=== PATIENT | male | born 1945 | race Caucasian/White ===

== ENCOUNTER → 2016-10-05 | Outpatient (CLI) | payer MEDICARE ==
--- NOTE | 2016-10-07 18:06 | P.CONS ---
History of Present Illness - Reason for Consult Consult date: 10/05/16 - History of Present Illness This is 71 years old male, with a chronic history of severe low back pain, patient was seen in the [facility] pain clinic more than 3 years ago, and we did interventional pain management, epidural steroid injection , patient had good pain relief, over the last few months he started complaining of increased intensity over the low back pain,, pain is constant and increases with any activity, patient denies any change in the bowel movement or urination and he has no fever or night sweats, intensity of the pain is interfering with his quality of life , and intensity of the pain fluctuates between a 6/10 increased to 9/10 with any activity, currently he is on pain medication Waldo 10 /325 every 8 hours, he is getting some relief from the pain medication but it is not enough to make him able to function and do activities of daily livings, he denies any side effect of the medication, Past Medical History Past Medical History: Diabetes Mellitus, Hypertension, Thyroid Disorder Additional Past Medical History / Comment(s): hx:kidney stones, pain lt hip leg , ankle, chronic neck pain and chronic left hip pain History of Any Multi-Drug Resistant Organisms: MRSA Year Discovered:: 2006 MDRO Source:: unknown Past Surgical History: Back Surgery, Cholecystectomy Additional Past Surgical History / Comment(s): cyst removal from chest Past Anesthesia/Blood Transfusion Reactions: No Reported Reaction Past Psychological History: Depression Smoking Status: Former smoker Past Alcohol Use History: Rare Additional Past Alcohol Use History / Comment(s): smoked 10 years 3ppd quit age 27 Past Drug Use History: None Reported - Past Family History Mother Family Medical History: No Reported History Medications and Allergies Home Medications Medication Instructions Recorded Confirmed Type Aspirin 325 mg PO DAILY 03/25/14 10/05/16 History Calcium Carbonate [Tums] 500 mg PO DAILY PRN 03/25/14 10/05/16 History Gabapentin [Neurontin] 800 mg PO TID 03/25/14 10/05/16 History Levothyroxine Sodium [Synthroid] 75 mcg PO DAILY 03/25/14 10/05/16 History [place] Oil/[place]-3 Fatty Acids 2 each PO DAILY 03/25/14 10/05/16 History [Fish Oil 500 mg Softgel] Citalopram Hydrobromide 40 mg PO DAILY 10/02/16 10/05/16 History Exenatide Microspheres [Bydureon] 2 mg SQ STOLL 10/02/16 10/05/16 History HYDROcodone/APAP 10-325MG [Waldo 1 tab PO Q8HR PRN 10/02/16 10/05/16 History 10-325] Lisinopril [Zestril] 5 mg PO DAILY 10/02/16 10/05/16 History buPROPion HCL [buPROPion HCL SR] 150 mg PO DAILY 10/02/16 10/05/16 History sitaGLIPtin PHOS/metFORMIN HCL 1 each PO DAILY 10/02/16 10/05/16 History [Janumet 50-1,000 mg Tablet] Allergies Allergy/AdvReac Type Severity Reaction Status Date / Time No Known Allergies Allergy Verified 10/05/16 13:21 Physical Exam ( Social history : not smoker , NO ETOH , NO Illegal drugs use . Review of Systems : 1- Constitutional : no chills , no fever , no night sweats , 2- Ears : no ear discharge , no change in hearing 3-Nose, Mouth ,Throat ; no bleeding gums, no sore throat , no epistaxis , 4-Cardiovascular : Denies chest pain, , no orthopnea , no palpitation 5-Respiratory : Denies cough , no dyspnea , no hemoptysis 6-Gastrointestinal :, no change in bowel habits , no coffee- ground emesis . 7-Genitourinary : No hematuria , no discharge , no incontinence, 8-Musculoskeletal : gait dysfunction , report low back pain , 9- Neurological : no ataxia , no tremor , no sezure , 10-Psychatric , no suicidal ideation no hallucination 11- Endocrine : no cold intolerence , no polyuria , no polydypsia , 12-Hematologic : no easy bleeding , no easy brusing , 13-Allergic / immunology : no angioedema , no wheezing ,no allergic rhinitis 14-Integumentary : no brttle nails , no change hair / nails , no foot/leg ulcers . Physical Examinations : 1-Constitutional : Cooperative , not in acute distress . 2-HEENT : nech ; supple , no Lymphadenopathy , no Thyromegaly , eyes , no icterus, no photophobia . ENT : , normal oropharynx , no Thrush 3- Respiratory : Chest clear to auscultations Bilaterally , no wheezing . 4- Cardiovascular : regular rate and rhythem , S1 , S2 , no S3 , no S4. 5- Gastrointestinal: abdomen soft no tenderness , no organomegally . 6- Genitourinary : Defferred . 7-Integumentary : No cellulitis , no ulcers , normal skin turgor , no cyanotic . 8- neurologic : Cranial nerve II to XII intact , no focal neurological deffecit 9-psychatric : alert , oriented X 3 , appropriate affect , intact judgment and insight . 10-Lymphatic : no Lymphadenopathy. 11- musculoskeltal: Antalgic. Gait exams of the Lumber spine = moter stegnth lower extremities , thigh and legs 5/5 Right side , 5/5 Left side deep tendon reflexes : normal Knee Jerk , normal ankle Jerk positive lumber facet Loading Test Range of motion of the lumbar spine Flexion 30 degrees, extension 10 degrees strait leg raising test , positive at 30 degree Fabere test positive RT and positive LT . Assessment and Plan Plan: Assessment and plan = - Chronic low back pain secondary to lumbar degenerative disc disease , lumbar spondylosis. - diagnoses, prognosis, and treatment options including but not limited to physical therapy, surgical interventions, interventional therapies and medication management including narcotics and adjuvant medication were discussed with the patient and all questions answered to the patient's satisfaction. -medication management= patient should continue to get his pain medication Waldo 10/325 every 8 hours from his primary care, and he should continue his Neurontin 800 mg 3 times a day -procedure= patient could benefit from lumbar epidural steroid injection under fluoroscopy guidance, and if he continued to have low back pain after the epidural steroid injection , then we will consider doing diagnostic medial branch block and possible radiofrequency Time with Patient: Greater than 30
== END | disposition home or self-care (01) ==
CPT/HCPCS: 99201

== ENCOUNTER 2016-11-23 09:52 | Day surgery (SDC) | payer MEDICARE ==
[2016-11-21 14:28] VITALS: BMI 37.1
[~2016-11-23 09:52] MED LIST: LACTATED RINGERS 1,000 ML IV SCH
[2016-11-23 10:36] VITALS: RESP 16; TEMP 97.1
[2016-11-23 10:40] LABS: Glucose,Whole Blood 169 mg/dL (75-99)
[2016-11-23] MEDS ORDERED: LIDOCAINE 1% 20 ML VIAL (10MG/ML) FOR IV START INTRADERMA ONE (10:42)
[2016-11-23] MEDS ORDERED: MIDAZOLAM 2 MG/2 ML VIAL ONE (11:12)
[2016-11-23] MEDS ORDERED: fentaNYL (PF) 50 MCG/ML 2 ML AMP ONE (11:12)
--- NOTE | 2016-11-23 11:31 | P.PCN ---
Date of Procedure: 11/23/16 Surgeon: Charlie Brewster Pathology: none sent Condition: stable Disposition: PACU Description of Procedure: PREOPERATIVE DIAGNOSIS: Lumbar post laminectomy syndrome. POSTOPERATIVE DIAGNOSIS: Lumbar post laminectomy syndrome. PROCEDURE: 1. Caudal epidural steroid injection under fluoroscopic guidance. 2. Caudal epidurogram. ANESTHESIA: Local with 1% lidocaine; IV sedation EBL: None. PROCEDURE INDICATION: This is a patient with postlaminectomy syndrome with uncontrolled low back and leg pain. No use of blood thinners. Patient was initially scheduled for lumbar epidural steroid injection, but with his history of previous laminectomy, I decided that a caudal HUY would be a better option due to epidural space obliteration from previous lumbar surgery. Patient was then scheduled for caudal HUY. PROCEDURE DESCRIPTION: The patient was seen and identified in the preoperative area. Risks, benefits, complications, and alternatives were discussed with the patient including but not limited to bleeding, infection, nerve damage, incomplete pain relief, and allergic reactions to medications. The patient agreed to proceed with the procedure and signed the informed consent. IV was started, and vital signs were stable. Patient was taken to the OR and time out was completed. The patient was placed in the prone position on procedure table and a pillow was placed under the abdomen to reduce lumbar lordosis. The lumbosacral area was prepped and draped in the usual sterile fashion. Vital signs were closely monitored during the procedure. Using lateral fluoroscopy the anterior-posterior plates of the sacrum were identified and the skin and deeper tissues corresponding into sacrococcygeal ligament were anesthetized using approximately 3 mL of 1% lidocaine. Then under fluoroscopy, a 3-1/2-inch 20-gauge Tuohy epidural needle was guided through the sacrococcygeal ligament, and into the epidural space. After negative aspiration , 2 mL of omnipaque-300 contrast dye was injected with excellent epidurogram. Again after negative aspiration for CSF, blood, and with no paresthesias, a solution containing Kenalog 40mg, 2ml of 1% preservative free lidocaine with 8 ml of preservative free normal saline (total of 11 ml) solution was injected with washout of epidurogram. Needle was withdrawn intact. Skin was cleansed, and bandage was applied. COMPLICATIONS: None. COMMENTS: DISPOSITION / PLANS: The patient was placed in a supine position and transferred to the recovery area in a stable condition for observation and was discharged from the recovery room after meeting discharge criteria. Home discharge instructions given to the patient by the staff. The patient was reexamined prior to discharge. The patient will schedule a follow up procedure ( caudal HUY #2) in 4-6 weeks.
[2016-11-23] MEDS ORDERED: IV FLUID CONTINUATION 1,000 ML IV ONE (11:33)
[2016-11-23 11:40] LABS: Glucose,Whole Blood 159 mg/dL (75-99)
[2016-11-23 11:52] VITALS: BP 101/60
--- NOTE | 2016-11-23 12:30 | FL ---
Fluoroscopy HISTORY: Pain 13 seconds fluoroscopy time supplied to the referring clinician. 2 intraoperative C-arm images docum ent the procedure. See dictated report from anesthesia.
[2016-11-23 13:04] VITALS: PULSE 78
== END 2016-11-23 13:24 | disposition home or self-care (01) ==
LOC: ORPAIN 09:52
PROVIDERS: ATTEND Anesthesiology
DX: M54.5 Low back pain (principal); G89.29 Other chronic pain; M96.1 Postlaminectomy syndrome, not elsewhere classified; M79.659 Pain in unspecified thigh; E11.9 Type 2 diabetes mellitus without complications; I10 Essential (primary) hypertension; F32.9 Major depressive disorder, single episode, unspecified; Z79.891 Long term (current) use of opiate analgesic; Z79.84 Long term (current) use of oral hypoglycemic drugs; Z79.899 Other long term (current) drug therapy
CPT/HCPCS: 62323; J2250; J3010

== ENCOUNTER → 2017-01-23 | Outpatient (CLI) | payer MEDICARE ==
[2017-01-23 13:10] VITALS: BP 145/78; PULSE 83; RESP 16; TEMP 97.5
--- NOTE | 2017-01-23 13:33 | P.PN ---
Progress Note - Text Patient returns for followup for chronic back pain with radiation to legs. Patient recently underwent caudal HUY x 1, which made his pain worse for several days and did not give him much relief. Patient continues on [place] medications for pain from PCP with good relief. Patient denies adverse drug effects from medications. Today, pt denies new-onset weakness, bowel/bladder incontinence, or any other signs or symptoms of cauda equina syndrome. There are no signs of acute intoxication, and no indications of medication diversion or overuse. Patient had MRI of L-spine done at [facility] but we do not have a copy of this result. In addition to above, 13-point review of systems is also negative for chest pain , shortness of breath, changes in vision, changes in hearing, new onset weakness , abdominal pain, diarrhea, extreme fatigue, malaise, fever, skin changes, homicidal or suicidal ideation, or bowel or bladder incontinence. Vital Signs: Reviewed in EMR Gen: WDWN, AAOx3, NAD HEENT: NCAT, EOMI, hearing grossly normal Pulm: resp unlabored Abd: soft, NT, ND Neck: supple, trachea midline ROM in flexion lumbar spine: reduced ROM in extension lumbar spine: reduced Lumbar paravertebral tenderness: + Facet loading: + bilateral SI joint tenderness: + LLE Earle's test: + LLE > RLE Straight leg raise: neg Neuro: CN II-XII grossly intact, muscle strength lower extremities PRESERVED Imaging: no lumbar spine MRI for review Assessment: 1. lumbar PLPS 2. lumbar spondylosis without myelopathy 3. chronic pain syndrome Plan: 1. Explanation: Opioid and psychological risk scores were reviewed. Diagnoses , prognoses, and multiple treatment options including but not limited to physical therapy, interventional therapies, adjuvant medical therapies, narcotic medication therapies, and surgery were discussed with the patient and all questions were answered to the patient's satisfaction. 2. Opioid agreement: no opioids prescribed today 3. Counseling: The patient was counseled extensively on SMOKING CESSATION, BODY MASS INDEX, EXERCISE. Specifically, the patient was instructed regarding the importance of smoking cessation, obesity, and exercise in the context of both chronic pain and overall health. 4. Procedures: bilateral lumbar MBB 4-6 weeks (although still awaiting MRI result) 5. Consultations: None 6. Investigations: None 7. Medications: none 8. Disposition: f/u for procedure as scheduled PQRS measures: 1-Patient's medications are documented in the chart. 2-Tobacco use is negative 3-Patient has not had a pneumococcal vaccine. 4-Advanced care planning discussed, patient unable to give. 5-Opioid contract NOT signed with the patient. 6-Pain positive, follow-up visit or procedure scheduled 7-Patient's blood pressure measured and documented, and patient will follow up with the primary care due to hypertension. 8-Patient's weight was measured, and body mass index ABOVE the normal limits, and counseling was done. Patient instructed to follow up with PCP. 9-Patient WAS NOT identified as an unhealthy alcohol user.
== END ==
LOC: PNWHC3 12:45
PROVIDERS: ATTEND Anesthesiology
DX: M47.816 Spondylosis without myelopathy or radiculopathy, lumbar region (principal); G97.1 Other reaction to spinal and lumbar puncture; G89.4 Chronic pain syndrome
CPT/HCPCS: 99211

== ENCOUNTER 2017-06-03 16:32 | Emergency (ER) | payer MEDICARE ==
[2017-06-03 16:39] VITALS: RESP 18
[2017-06-03 17:16] LABS: Appearance,Urine Turbid (Clear); Bilirubin,Urine Negative (Negative); Glucose,Urine (UA) 4+ (Negative); Ketones,Urine Negative (Negative); Leukocyte Esterase,Urine Large (Negative); Nitrite,Urine Negative (Negative); PH, Urine 5.5 (5.0-8.0); Particle Count 6161; Protein,Urine 1+ (Negative); Specific Gravity,Urine 1.016 (1.001-1.035); Squamous Epithelial Cell,Urine 3 /hpf (0-4); UA Billing (MACRO vs. MICRO) MICRO; Urobilinogen,Urine <2.0 mg/dL (<2.0); WBC,Urine >182 /hpf (0-5)
--- NOTE | 2017-06-03 17:25 | ED ---
General Adult HPI - General Chief complaint: Urogenital Stated complaint: Male Time Seen by Provider: 06/03/17 16:59 Source: patient, RN notes reviewed Mode of arrival: ambulatory Limitations: no limitations - History of Present Illness Initial comments: 72-year-old male presents emergency Department with multiple complaints. Patient complains of dysuria which started approximately one month ago. Patient has had on and off issues the last 6-7 months and has seen his urologist Dr. Etienne in which she states that they have not been able to figure out what causes his issues. He did state that sometimes there is an infection. Patient denies any abdominal pain including nausea, vomiting diarrhea constipation. Patient states that he had a fall 1 week ago in which he fell onto his right wrist and had x-rays at [facility]. Patient states today's with later he fell onto his right rib region and has complained of rib pain. He can denies any abdominal pain. He states he does have pain with inspiration and has some shortness breath secondary to pain denies any resting shortness of breath. Denies any head injury no LOC. - Related Data Home Medications Medication Instructions Recorded Confirmed Aspirin 325 mg PO DAILY 03/25/14 06/03/17 Gabapentin [Neurontin] 800 mg PO TID 03/25/14 06/03/17 Levothyroxine Sodium [Synthroid] 75 mcg PO DAILY 03/25/14 06/03/17 [place] Oil/[place]-3 Fatty Acids 2 cap PO DAILY 03/25/14 06/03/17 [Fish Oil 500 mg Softgel] Citalopram Hydrobromide 40 mg PO DAILY 10/02/16 06/03/17 [Citalopram HBr] buPROPion HCL [buPROPion HCL SR] 150 mg PO DAILY 10/02/16 06/03/17 HYDROmorphone HCL [Dilaudid] 8 mg PO Q6H PRN 06/03/17 06/03/17 Metoprolol Tartrate [Lopressor] 100 mg PO BID 06/03/17 06/03/17 Previous Rx's Medication Instructions Recorded Levofloxacin [Levaquin] 500 mg PO DAILY #10 tab 06/03/17 Allergies Allergy/AdvReac Type Severity Reaction Status Date / Time No Known Allergies Allergy Verified 06/03/17 17:17 Review of Systems ROS Statement: Those systems with pertinent positive or pertinent negative responses have been documented in the HPI. ROS Other: All systems not noted in ROS Statement are negative. Past Medical History Past Medical History: Diabetes Mellitus, Fibromyalgia, Hypertension, Skin Disorder, Thyroid Disorder Additional Past Medical History / Comment(s): hx:kidney stones, chronic pain sierra legs, psoriasis History of Any Multi-Drug Resistant Organisms: MRSA Date of last positivie culture/infection: 2006 MDRO Source:: unknown Past Surgical History: Back Surgery, Cholecystectomy Additional Past Surgical History / Comment(s): cyst removal from chest, lithotripsy Past Anesthesia/Blood Transfusion Reactions: No Reported Reaction Past Psychological History: Anxiety, Depression Smoking Status: Former smoker Past Alcohol Use History: Rare Past Drug Use History: None Reported - Past Family History Mother Family Medical History: No Reported History General Exam Limitations: no limitations General appearance: alert, in no apparent distress Head exam: Present: atraumatic, normocephalic, normal inspection Respiratory exam: Present: normal lung sounds bilaterally, chest wall tenderness (Right anterolateral rib tenderness). Absent: respiratory distress, wheezes, rales, rhonchi, stridor Cardiovascular Exam: Present: regular rate, normal rhythm, normal heart sounds. Absent: systolic murmur, diastolic murmur, rubs, gallop, clicks GI/Abdominal exam: Present: soft, normal bowel sounds. Absent: distended, tenderness, guarding, rebound, rigid exam: Absent: normal inspection (Mild erythema at the urethral), testicular tenderness, urethral discharge, scrotal swelling Extremities exam: Present: normal inspection, full ROM, normal capillary refill. Absent: tenderness, pedal edema, joint swelling, calf tenderness Back exam: Present: full ROM. Absent: tenderness Neurological exam: Present: alert, oriented X3, CN II-XII intact, reflexes normal. Absent: motor sensory deficit Skin exam: Present: warm, dry, intact, normal color. Absent: rash Course Vital Signs 06/03/17 16:35 Temperature 97 F L Pulse Rate 105 H Respiratory 18 Rate Blood Pressure 176/79 O2 Sat by Pulse 96 Oximetry Medical Decision Making - Medical Decision Making 72-year-old male presented for dysuria, right rib pain. Patient does have urinary tract infection at this time. Patient was treated with antibiotics and follow-up with urologist. Patient also has nondisplaced rib fracture. Patient will continue take his home pain meds. Return parameters were discussed. - Lab Data Lab Results 06/03/17 06/03/17 Range/Units 16:55 17:46 POC Glucose (mg/dL) 241 H (75-99) mg/dL POC Glu Clay Modeler ID Alma Swenson Urine Color Yellow Urine Appearance Turbid (Clear) Urine pH 5.5 (5.0-8.0) Ur Specific [place] 1.016 (1.001-1.035) Urine Protein 1+ H (Negative) Urine Glucose (UA) 4+ H (Negative) Urine Ketones Negative (Negative) Urine Blood Small H (Negative) Urine Nitrite Negative (Negative) Urine Bilirubin Negative (Negative) Urine Urobilinogen <2.0 (<2.0) mg/dL Ur Leukocyte Esterase Large H (Negative) Urine WBC >182 H (0-5) /hpf Urine WBC Clumps Many H (None) /hpf Ur Squamous Epith Cells 3 (0-4) /hpf Disposition Clinical Impression: Rib fracture, Urinary tract infection Disposition: HOME SELF-CARE Condition: Stable Instructions: Urinary Tract Infection in Men (ED) Additional Instructions: Please return to the Emergency Department if symptoms worsen or any other concerns. Prescriptions: Levofloxacin [Levaquin] 500 mg PO DAILY #10 tab Referrals: Benson Amor MD [Primary Care Provider] - 1-2 days Time of Disposition: 17:58
[2017-06-03] MEDS ORDERED: PHENAZOPYRIDINE 200 MG TAB PO STA (17:27)
[2017-06-03] MEDS ORDERED: LEVOFLOXACIN 500 MG TAB PO STA (17:35)
[2017-06-03] MEDS ORDERED: HYDROcodone/APAP 10-325MG 1 EACH TAB PO ONE (17:47)
[2017-06-03 17:49] LABS: Glucose,Whole Blood 241 mg/dL (75-99)
--- NOTE | 2017-06-03 17:55 | XR ---
EXAMINATION TYPE: PA chest and right rib series DATE OF EXAM: 06/03/2017 COMPARISON: None HISTORY: 72-year-old male with right-sided pain after fall one week ago FINDINGS: Heart is normal size. Mild elongation of the thoracic aorta. Mild diffuse interstitial prominence. No consolidation, pneumothorax, or pleural effusion. Possible nondisplaced fracture of the anterior right eighth rib near the costochondral junction seen only on one view. Cholecystectomy clips. IMPRESSION: 1. No acute cardiopulmonary process. 2. Possible nondisplaced fracture of the anterior right eighth rib near the costochondral junction. C orrelate for any focal pain here.
[2017-06-03 18:09] VITALS: BP 160/87; PULSE 95; TEMP 98
== END 2017-06-03 18:08 | disposition home or self-care (01) ==
LOC: EC 16:32
DX: S22.31XA Fracture of one rib, right side, initial encounter for closed fracture (principal); N39.0 Urinary tract infection, site not specified; I10 Essential (primary) hypertension; E07.9 Disorder of thyroid, unspecified; F32.9 Major depressive disorder, single episode, unspecified; F41.9 Anxiety disorder, unspecified; Z86.14 Personal history of Methicillin resistant Staphylococcus aureus infection; Z87.891 Personal history of nicotine dependence; Z79.891 Long term (current) use of opiate analgesic; Z79.82 Long term (current) use of aspirin; Z79.899 Other long term (current) drug therapy; W19.XXXA Unspecified fall, initial encounter
CPT/HCPCS: 36415; 81001; 87086; 99283

== ENCOUNTER → 2019-10-01 | Outpatient (CLI) | payer MEDICARE, OTHER ==
--- NOTE | 2019-10-01 15:48 | US ---
EXAMINATION TYPE: US scrotum with doppler. Grayscale and color Doppler Duplex imaging performed of karyn young scrotum. DATE OF EXAM: 10/01/2019 COMPARISON: NONE CLINICAL HISTORY: N50.89 testicular mass. No swelling or redness. Patient states having a recent jennifer al infection. Patient states feeling lump. EXAM MEASUREMENTS: TESTICLES: Right Testicle: 4.2 x 2.8 x 2.7 cm Left Testicle: 3.4 x 3.2 x 2.6 cm EPIDIDYMIS HEAD: Right Epididymis: 1.3 x 0.9 x 0.9 cm Left Epididymis: 1.2 x 0.9 x 0.6 cm Doppler performed to assess for testicular vascularity; good bilateral color flow and waveforms are s een. There is no evidence of testicular torsion. Presence of hydroceles: Bilateral Presence of varicoceles: no Bilateral cystic appearing lesions seen in epididymal head. Largest measured; Right- 0.6 x 0.7 x 0.6 cm Left- 0.8 x 0.8 cm. IMPRESSION: 1. Bilateral epididymal cyst. 2. No ultrasound evidence of torsion. 3. No discrete testicular masses.
== END | disposition home or self-care (01) ==
LOC: RADUSWWP 14:49
PROVIDERS: ATTEND Physician Assistant
DX: N50.3 Cyst of epididymis (principal)
CPT/HCPCS: 76870; 93975

== ENCOUNTER 2019-10-27 18:22 | Emergency (ER) | payer MEDICARE, OTHER ==
[2019-10-27 18:29] VITALS: RESP 18; TEMP 97.6
--- NOTE | 2019-10-27 19:01 | ED ---
Abdominal Pain HPI - General Chief Complaint: Abdominal Pain Stated Complaint: hematuria Time Seen by Provider: 10/27/19 18:30 Source: patient, RN notes reviewed Mode of arrival: ambulatory - History of Present Illness Initial Comments: This is a 74-year-old male with a history of kidney stones who complains of dysuria with gross hematuria this morning. He had 2 episodes of gross hematuria. He states he was diagnosed with a urinary tract infection recently was antibiotic for 14 days it did not resolve he was switched over to doxycycline he is now on day 5 states that the dysuria continues though is somewhat better he states also gross hematuria is clearing up somewhat later in the day he denies any fevers chills nausea vomiting sweats cough shortness of breath no worsening of the discomfort with or without movement. He states he did have a large kidney stone left kidney in the past was removed. MD Complaint: flank pain - Related Data Home Medications Medication Instructions Recorded Confirmed Aspirin 325 mg PO DAILY 03/25/14 06/03/17 Gabapentin [Neurontin] 800 mg PO TID 03/25/14 06/03/17 Levothyroxine Sodium [Synthroid] 75 mcg PO DAILY 03/25/14 06/03/17 [place]-3 Fatty Acids 2 cap PO DAILY 03/25/14 06/03/17 [Fish Oil 500 mg Softgel] Citalopram Hydrobromide 40 mg PO DAILY 10/02/16 06/03/17 [Citalopram HBr] buPROPion HCL [buPROPion HCL SR] 150 mg PO DAILY 10/02/16 06/03/17 HYDROmorphone HCL [Dilaudid] 8 mg PO Q6H PRN 06/03/17 06/03/17 Metoprolol Tartrate [Lopressor] 100 mg PO BID 06/03/17 06/03/17 Previous Rx's Medication Instructions Recorded Levofloxacin [Levaquin] 500 mg PO DAILY #10 tab 06/03/17 Cephalexin [Keflex] 500 mg PO Q6HR #40 cap 10/27/19 Phenazopyridine HCl [Pyridium] 100 mg PO TID #21 tab 10/27/19 Allergies Allergy/AdvReac Type Severity Reaction Status Date / Time No Known Allergies Allergy Verified 06/03/17 17:17 Review of Systems ROS Statement: Those systems with pertinent positive or pertinent negative responses have been documented in the HPI. ROS Other: All systems not noted in ROS Statement are negative. Past Medical History Past Medical History: Diabetes Mellitus, Fibromyalgia, Hypertension, Skin Disorder, Thyroid Disorder Additional Past Medical History / Comment(s): hx:kidney stones, chronic pain [place] legs, psoriasis History of Any Multi-Drug Resistant Organisms: MRSA Date of last positivie culture/infection: 2006 MDRO Source:: unknown Past Surgical History: Back Surgery, Cholecystectomy Additional Past Surgical History / Comment(s): cyst removal from chest, lithotripsy Past Anesthesia/Blood Transfusion Reactions: No Reported Reaction Past Psychological History: Anxiety, Depression Smoking Status: Former smoker Past Alcohol Use History: Rare Past Drug Use History: None Reported - Past Family History Mother Family Medical History: No Reported History General Exam - General Exam Comments Initial Comments: This is a well-developed well-nourished awake alert oriented 3 male General appearance: alert, in no apparent distress Head exam: Present: atraumatic, normocephalic, normal inspection Eye exam: Present: normal appearance, PERRL, EOMI. Absent: scleral icterus, conjunctival injection, periorbital swelling ENT exam: Present: normal exam, mucous membranes moist Neck exam: Present: normal inspection. Absent: tenderness, meningismus, lymphadenopathy Respiratory exam: Present: normal lung sounds bilaterally. Absent: respiratory distress, wheezes, rales, rhonchi, stridor Cardiovascular Exam: Present: regular rate, normal rhythm, normal heart sounds. Absent: systolic murmur, diastolic murmur, rubs, gallop, clicks GI/Abdominal exam: Present: soft, normal bowel sounds. Absent: distended, tenderness, guarding, rebound, rigid Extremities exam: Present: normal inspection, full ROM, normal capillary refill. Absent: tenderness, pedal edema, joint swelling, calf tenderness Back exam: Present: normal inspection Neurological exam: Present: alert, oriented X3, CN II-XII intact Psychiatric exam: Present: normal affect, normal mood Skin exam: Present: warm, dry, intact, normal color. Absent: rash Course Vital Signs 10/27/19 18:26 Temperature 97.6 F Pulse Rate 77 Respiratory 18 Rate Blood Pressure 172/75 O2 Sat by Pulse 96 Oximetry Medical Decision Making - Medical Decision Making I did discuss findings with the patient the presentation is consistent with UTI/cystitis. Patient will be placed on appropriate antibiotics he is encourage increase his oral fluids follow-up with his doctor return when necessary - Lab Data Result diagrams: 10/27/19 19:14 10/27/19 19:14 Lab Results 10/27/19 10/27/19 10/27/19 Range/Units 19:14 19:14 19:14 WBC 12.3 H (3.8-10.6) k/uL RBC 4.42 (4.30-5.90) m/uL Hgb 12.7 L (13.0-17.5) gm/dL Hct 40.1 (39.0-53.0) % MCV 90.7 (80.0-100.0) fL MCH 28.8 (25.0-35.0) pg MCHC 31.7 (31.0-37.0) g/dL RDW 14.6 (11.5-15.5) % Plt Count 264 (150-450) k/uL Neutrophils % 66 % Lymphocytes % 22 % Monocytes % 5 % Eosinophils % 5 % Basophils % 1 % Neutrophils # 8.1 H (1.3-7.7) k/uL Lymphocytes # 2.7 (1.0-4.8) k/uL Monocytes # 0.6 (0-1.0) k/uL Eosinophils # 0.7 (0-0.7) k/uL Basophils # 0.1 (0-0.2) k/uL Sodium 140 (137-145) mmol/L Potassium 4.4 (3.5-5.1) mmol/L Chloride 105 (98-107) mmol/L Carbon Dioxide 19 L (22-30) mmol/L Anion Gap 16 mmol/L BUN 42 H (9-20) mg/dL Creatinine 2.24 H (0.66-1.25) mg/dL Est GFR (CKD-EPI)AfAm 33 (>60 ml/min/1.73 sqM) Est GFR (CKD-EPI)NonAf 28 (>60 ml/min/1.73 sqM) Glucose 186 H (74-99) mg/dL Calcium 9.8 (8.4-10.2) mg/dL Magnesium 2.1 (1.6-2.3) mg/dL Total Bilirubin 0.3 (0.2-1.3) mg/dL AST 21 (17-59) U/L ALT 12 (4-49) U/L Alkaline Phosphatase 172 H (38-126) U/L Creatine Kinase 56 (55-170) U/L Total Protein 7.5 (6.3-8.2) g/dL Albumin 4.2 (3.5-5.0) g/dL Amylase 68 (30-110) U/L Lipase 191 (23-300) U/L Urine Color Yellow Urine Appearance Cloudy (Clear) Urine pH 5.0 (5.0-8.0) Ur Specific [place] 1.013 (1.001-1.035) Urine Protein Trace H (Negative) Urine Glucose (UA) Trace H (Negative) Urine Ketones Negative (Negative) Urine Blood Moderate H (Negative) Urine Nitrite Negative (Negative) Urine Bilirubin Negative (Negative) Urine Urobilinogen <2.0 (<2.0) mg/dL Ur Leukocyte Esterase Large H (Negative) Urine RBC >182 H (0-5) /hpf Urine WBC 170 H (0-5) /hpf Ur Squamous Epith Cells 1 (0-4) /hpf Urine Bacteria Rare H (None) /hpf Urine Mucus Rare H (None) /hpf - Radiology Data Radiology results: report reviewed (I did review the imaging and report chronic changes with atrophy left kidney no evidence of acute obstruction. Please see the complete report.), image reviewed Disposition Clinical Impression: Urinary tract infection, Cystitis, Renal insufficiency syndrome Disposition: HOME SELF-CARE Condition: Good Instructions (If sedation given, give patient instructions): Urinary Tract Infection in Men (ED), Chronic Kidney Disease (ED) Additional Instructions: Occasion prescription sent to your preferred pharmacy Prescriptions: Cephalexin [Keflex] 500 mg PO Q6HR #40 cap Phenazopyridine HCl [Pyridium] 100 mg PO TID #21 tab Is patient prescribed a controlled substance at d/c from ED?: No Referrals: Benson Amor MD [Primary Care Provider] - 1-2 days
[2019-10-27 19:27] LABS: Basophils # (A) 0.1 k/uL (0-0.2); Basophils % (A) 1 %; Eosinophils # (A) 0.7 k/uL (0-0.7); Eosinophils % (A) 5 %; HCT 40.1 % (39.0-53.0); HGB 12.7 gm/dL (13.0-17.5); Lymphocytes # (A) 2.7 k/uL (1.0-4.8); Lymphocytes % (A) 22 %; MCH 28.8 pg (25.0-35.0); MCHC 31.7 g/dL (31.0-37.0); MCV 90.7 fL (80.0-100.0); Mean Platelet Volume 7.6; Monocytes # (A) 0.6 k/uL (0-1.0); Monocytes % (A) 5 %; Neutrophils # (A) 8.1 k/uL (1.3-7.7); Neutrophils % (A) 66 %; Platelet Count 264 k/uL (150-450); RBC 4.42 m/uL (4.30-5.90); RDW 14.6 % (11.5-15.5); WBC 12.3 k/uL (3.8-10.6)
[2019-10-27 19:29] LABS: Appearance,Urine Cloudy (Clear); Bacteria,Urine Rare /hpf; Bilirubin,Urine Negative (Negative); Blood,Urine Moderate (Negative); Color,Urine Yellow; Glucose,Urine (UA) Trace (Negative); Ketones,Urine Negative (Negative); Leukocyte Esterase,Urine Large (Negative); Mucus,Urine Rare /hpf; Nitrite,Urine Negative (Negative); Protein,Urine Trace (Negative); RBC,Urine >182 /hpf (0-5); Specific Gravity,Urine 1.013 (1.001-1.035); Squamous Epithelial Cell,Urine 1 /hpf (0-4); Urobilinogen,Urine <2.0 mg/dL (<2.0); WBC,Urine 170 /hpf (0-5)
[2019-10-27 19:36] LABS: Albumin 4.2 g/dL (3.5-5.0); Calcium 9.8 mg/dL (8.4-10.2); Magnesium 2.1 mg/dL (1.6-2.3); Potassium 4.4 mmol/L (3.5-5.1); Total Bilirubin 0.3 mg/dL (0.2-1.3); Total Protein 7.5 g/dL (6.3-8.2)
--- NOTE | 2019-10-27 20:18 | CT ---
EXAMINATION TYPE: CT abdomen pelvis wo con DATE OF EXAM: 10/27/2019 COMPARISON: 11/08/2012 HISTORY: Hematuria CT DLP: 1143.4 mGycm Automated exposure control for dose reduction was used. Multiple axial sections were obtained from the diaphragm to the floor the pelvis without contrast. There is minimal subsegmental atelectasis right lung base. There is no pleural effusion. Heart size i s normal. There is no pericardial effusion. Liver spleen stomach pancreas appear normal. Bile ducts a re not dilated. There are clips from cholecystectomy. There is no adrenal mass. Right kidney shows 4 cm cyst on the posterior aspect. Right kidney shows no hydronephrosis. Left kidney shows cortical thinning and multiple cysts. There is left-sided hydronep hrosis and periureteral edema. I see no ureteral calculus. There is curvilinear calcification posteri or left kidney consistent with a complex cyst. There is no retroperitoneal adenopathy. Bladder is car ost empty. There is mild urinary bladder wall thickening. There is no free fluid in the pelvis. There is no inguinal hernia. There is no mesenteric edema. There is no ascites or free air. There is no sign of a bowel obstructio n. Lumbar vertebra have normal alignment. There is 15% anterior wedging of L1 vertebra that appears old. The bony pelvis appears intact. IMPRESSION: Bilateral renal cysts. There is chronic dilation of the left upper collecting system with hydronephro sis and hydroureter also present on old exam. No ureteral stone seen. There is left renal atrophy. Th ere is complex posterior left renal cortical cyst with calcification in the wall. The size is not angelique nged compared to old exam. Calcification appears new compared to old exam.
[2019-10-27] MEDS ORDERED: cefTRIAXone IN SWFI 1,000 MG/10 ML SYRINGE IVP STA (20:25)
[2019-10-27] MEDS ORDERED: PHENAZOPYRIDINE 100 MG TAB PO STA (20:44)
[2019-10-27 21:07] VITALS: BP 159/79; PULSE 78
== END 2019-10-27 21:07 | disposition home or self-care (01) ==
LOC: EC 18:22
DX: N30.91 Cystitis, unspecified with hematuria (principal); N28.9 Disorder of kidney and ureter, unspecified; I10 Essential (primary) hypertension; E11.9 Type 2 diabetes mellitus without complications; F41.9 Anxiety disorder, unspecified; F32.9 Major depressive disorder, single episode, unspecified; E07.9 Disorder of thyroid, unspecified; Z79.82 Long term (current) use of aspirin; Z79.890 Hormone replacement therapy; Z79.899 Other long term (current) drug therapy; Z87.891 Personal history of nicotine dependence; Z90.49 Acquired absence of other specified parts of digestive tract
CPT/HCPCS: 36415; 80053; 82150; 82550; 83690; 83735; 85025; 81001; 87086; 74176; 99284; 96374; J0696